=== PATIENT | female | born 1990 | race Caucasian/White ===

== ENCOUNTER 2022-07-26 15:05 | Outpatient (REF) | payer BC, SELFPAY ==
[2022-07-26 13:50] LABS: *AMPHETAMINES SCREEN URINE Negative (Negative); *BARBITURATES SCREEN URINE Negative (Negative); *BENZODIAZEPINES SCREEN URINE Negative (Negative); Cannabinoids THC Negative (Negative); Cocaine Screen,Urine Negative (Negative); METHADONE URINE SCREEN Negative (Negative); OPIATES URINE SCREEN Negative (Negative); Tricyclic Antidepressants Negative (Negative)
== END 2022-07-26 15:06 | disposition home or self-care (01) ==
LOC: LBN 15:05
PROVIDERS: Visit Provider Advanced Practice Midwife
DX: Z34.92 Encounter for supervision of normal pregnancy, unspecified, second trimester (principal); Z3A.17 17 weeks gestation of pregnancy
CPT/HCPCS: 80307; 87086

== ENCOUNTER 2022-08-23 01:21 | Outpatient (CLI) | payer BC, SELFPAY ==
[2022-08-26 11:06] LABS: Varicella IgG Antibody Positive (See Note)
== END 2022-08-23 01:22 | disposition home or self-care (01) ==
LOC: LBO 01:21
PROVIDERS: Visit Provider Advanced Practice Midwife
DX: Z34.92 Encounter for supervision of normal pregnancy, unspecified, second trimester (principal); Z3A.21 21 weeks gestation of pregnancy
CPT/HCPCS: 36415; 86787; 86850; 86900; 86901

== ENCOUNTER 2022-11-20 12:59 | Outpatient (REF) | payer BC, SELFPAY ==
[2022-11-20 14:13] LABS: *AMPHETAMINES SCREEN URINE Negative (Negative); *BARBITURATES SCREEN URINE Negative (Negative); *BENZODIAZEPINES SCREEN URINE Negative (Negative); Cannabinoids THC Negative (Negative); Cocaine Screen,Urine Negative (Negative); METHADONE URINE SCREEN Negative (Negative); OPIATES URINE SCREEN Negative (Negative); Tricyclic Antidepressants Negative (Negative)
[2022-11-30 11:57] LABS: Buprenorphine Negative ng/mL (Cutoff: 5.0); Norbuprenorphine Negative ng/mL (Cutoff: 2.5)
== END 2022-11-20 13:00 | disposition home or self-care (01) ==
LOC: LBN 12:59
PROVIDERS: Visit Provider Advanced Practice Midwife
DX: Z34.93 Encounter for supervision of normal pregnancy, unspecified, third trimester (principal); Z3A.34 34 weeks gestation of pregnancy
CPT/HCPCS: 80307; 80348

== ENCOUNTER 2022-12-05 09:38 | Outpatient (REF) | payer BC, SELFPAY | END 2022-12-05 09:39 | disposition home or self-care (01) | LOC: LBN 09:38 | PROVIDERS: Visit Provider Advanced Practice Midwife | DX: Z34.90 Encounter for supervision of normal pregnancy, unspecified, unspecified trimester (principal); Z3A.36 36 weeks gestation of pregnancy; Z36.85 Encounter for antenatal screening for Streptococcus B | CPT/HCPCS: 87081 ==

== ENCOUNTER 2022-12-24 15:55 | Outpatient (CLI) | payer BC, SELFPAY ==
[2022-12-24 17:12] VITALS: BP 103/79; PULSE 78; TEMP 36.8
--- NOTE | 2022-12-24 17:40 | W.OBNST ---
Date of service: 12/24/22 Time of Service: 17:40 NST Evaluation Reason for NST Reasons for Nonstress Test: OTHER, SEE COMMENT Reason for NST Other: rule out labor Gestational Age Gestational Age in Weeks and Days: 39 Weeks and 1Days Test and Monitor Explained Test/Monitor Explained: Test Explained, Monitor Explained and Patient Verbalized Understanding Vital Signs Blood Pressure: 103/79 Pulse: 78 Temperature: 98.2 F Urine Results Urine Protein: Negative Urine Ketones: Negative Urine Glucose: Negative Urine Blood: Negative NST Information Date on Monitor: 12/24/22 Time on Monitor: 17:15 Date off Monitor: 12/24/22 Time off Monitor: 17:36 Total Time on Monitor: 21 NST Interventions: PO Hydration Contraction Frequency: 8 NST Evaluation Patient States Movement: Present FHR Baseline: 130 Variability: Moderate 6-25 bpm Accelerations: 15x15 Decelerations: None NST Results: Reactive Note Ultrasound Done: N/A. NST Note Note: NST is reactive and reassuring. VE done per patient request, no cervical change from last office exam, 1.5/50/-2 posterior and soft. Will keep next scheduled office visit or return if signs of labor increase. ANJELICA NST Reviewed and Verified by: Kavita Maloney
[2022-12-24 17:41] VITALS: BP 103/79; PULSE 78; TEMP 36.8
== END 2022-12-24 17:40 | disposition home or self-care (01) ==
LOC: BCD 15:57 → OBS 17:09
PROVIDERS: Visit Provider Advanced Practice Midwife
DX: O47.1 False labor at or after 37 completed weeks of gestation (principal); Z3A.39 39 weeks gestation of pregnancy
CPT/HCPCS: 59025

== ENCOUNTER 2022-12-28 20:00 | Inpatient (IN) | payer BC, SELFPAY ==
[2022-12-28] VITALS (14 sets, daily range): BP systolic 110–126; BP diastolic 64–77; PULSE 57–89; RESP 16–18; TEMP 36.7; O2SAT 98–99
--- NOTE | 2022-12-28 20:01 | HPE_ITS ---
Date of service: 12/28/22 Time of Service: 20:01 Assessment and Plan Assessment and plan (1) Normal labor: Status: Acute Assessment and plan: 1. Admit to BC, expectant management, CBC and Type and screen, plan for NVD. KH OB-HPI Labor/Delivery History of Present Illness Reason for Visit: NORMAL LABOR Chief Complaint: Uterine Contractions. AMINTA Calculator Estimated Delivery Date Method Current WG Current Estimate 12/30/22 Ultrasound #1 39w 5d Other Estimates 01/07/23 LMP (Certain) 38w 4d Comments: Sarah and her , Marco present for labor assessment. Contractions began around 1pm every 10 minutes and have increased in frequency and intensity since that time. Has had some bloody show but no LOF. Baby has been active. She is tolerating labor well. History of Present Expected Delivery Route/Plan - CNM FOB/ - Marco Alvarez (2nd child together) BB yes to circ Would like to avoid epidural this time GBS negative Specific Issues/Plan 1. transfer at 17weeks from [facility] 2. cfDNA LR male, declined CF/SMA 3. US to be done at [facility] as patient works there 3a. incomplete anatomy, nose, lips, profile and noted echogenic foci in heart 3b. Referral to [facility] for follow up US and if needed echo per patient request. M agrees cfDNA negates echo genic foci 3c. Marginal cord insertion noted at [facility], 32 week growth US at [facility]= 70th% & ALBERTINA=11 4. Pap was ASCUS negative HR HPV will repeat PP 5. Will do 1 hr GTT and CBC at [facility] orders sent 09/23: 1 hr 105/ hgb 11.6 6. Desires LC consult prior to delivery, ordered. Assessment: History Reviewed & Current Review of Systems All systems reviewed & are unremarkable except as noted in HPI and below Genitourinary Comments: mucous vagina discharge with some blood tinge Musculoskeletal Comments: regular uterine contractions PFSH All Active Problems (Updated 12/28/22 @ 20:09 by Kavita Maloney CNM) Normal labor (Acute) Marginal insertion of umbilical cord affecting management of mother (Acute) Echogenic focus of heart of fetus affecting antepartum care of mother (Acute) ASCUS of cervix with negative high risk HPV (Acute) (Acute) Family History Mother Asthma Social History Smoking/Tobacco Use Status: Never Second Hand Exposure: No Smoking risk assessment performed?: Yes Alcohol Intake: former Drug use: Never Adopted: No Household members: spouse and children Housing: house Communication Needs: None Education Level: college Do you need help understanding health information?: Never Pets and animals: No Sexually active: Yes Do you think of yourself as: straight/heterosexual Current gender identity: female What is your relationship status?: How often do you talk on the phone with friends or family?: three or more times per week How often do you get together with friends or relatives?: three or more times per week Panel score (0-1 are the most socially isolated patients): 2 What type of physical activity do you participate in: walking Duration: 30-45 minutes/day Frequency: 3-4 times per week Special luisa needs: No Agree to transfusion: Yes Seatbelt use: always Helmet use: Yes Drive intox 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 Date GA/Weeks # Preg Succ Route Wgt Sex Labor Lgth Anesth esia Location [facility] 09/27/20 38 No Yes vaginal 7 lb 13 oz Male 14 [facility] Delivery Date: 09/27/20 Last Updated by: Kavita Maloney CNM [place] Meds Allergies and Home Medications Allergies Allergy/AdvReac Type Severity Reaction Status Date / Time sulfa drugs Allergy Other (See Uncoded 12/28/22 20:07 Comment) Home Medications Medication Instructions Recorded Confirmed Type prenat.vits,barry,[id number] 1 tab PO DAILY 07/26/22 12/26/22 History Exam Constitutional Constitutional: mild distress (working well with contractions) and average body habitus Detailed Labor and Delivery Exam Dilation: 8 Effacement (%): 100 station: -1 Position: CARLOS Cervix position: mid Consistency: soft Salinas Score: Cervical Points Exam 0 1 2 3 Dilation Closed 1-2cm 3-4 cm 5-6cm Effacement 0-30% 40-50% 60-70% 80% Consistency Firm Medium Soft Station -3 -2 -1,0 +1,+2 Position Posterior Mid Anterior SALINAS Score(Cervical Ripeness Score): 12 Amniotic Membrane Status: Intact Contraction Frequency(min): 4 Contraction Duration(sec): 60-90 Contraction Intensity: Moderate/Strong Fetus A Heart Rate Baseline: 120 Monitor Accelerations: 15 X 15 Monitor Decelerations: None Variability: Moderate (6-25 BPM) Categories: Category I Est. Weight: 7 lb HEENT Exam HEENT Exam: Normal Neck Exam Neck Exam: Normal (visual exam) Chest/Brest/Axilla Exam Chest Exam: Normal Breast Exam Breast Exam: Not Done Respiratory Exam Respiratory Exam: Normal Cardiovascular Exam Cardiovascular Exam: Normal Abdominal Exam Abdominal Exam: Normal (gravid uterus, size equals dates) Rectal Exam Rectal Exam: Not Done Exam Exam: Normal Extremities Exam Extremities Exam: Normal Back/Spine/Pelvis Exam Back Exam: Not Done Pelvis Adequate: Yes Skin Exam Skin Exam: Normal Neurological Exam Neurological Exam: Normal Psychiatric Exam Psychiatric Exam: Normal Results Results Group Beta Strep: Negative Blood Type: A+ Rubella Status: Immune Varicella Immunity: Immune Lab Results: cfDNA LR male, GC CT neg, 1 hr glucose 105, declines CF and SMA testing Risk Assessment Risk for Shoulder Dystocia Historical/Initial OB: NEGATIVE FOR: Pelvic Abnormality, Pre- BMI>30, Previous Shoulder Dystocia or Previous Macrosomia 36 Weeks: NEGATIVE FOR: Current Gestational DM, EFW>4500gms or Maternal Weight Gain>40lbs 40 Weeks: NEGATIVE FOR: EFW> 4500 gms, Maternal Weight Gain >40lb or Post Dates Increased Risk?: No Date/Initial: 07/26/22: KH Delivery Plan @ 36wks: Delivery Plan @ 40 wks: NVD Risk for Pre-Eclampsia Daily Dose ASA Indicated: No Yes, if one or more: NEGATIVE FOR: Hx Pre-E/Gest HTN, Chronic HTN, Multiple Gestation, Pre-gestational DM, Renal Disease, Systemic Lupus or APA Syndrome Yes, if 2 or more: NEGATIVE FOR: Nulliparity, Age>= 35 yrs, >10yr btwn pregnancies, BMI>30, ethinicty, Mother/Sister w/ Pre-E or Previous IUGR Risk for Post- Hemorrhage Initial: NEGATIVE FOR: Multiple Gestation, Previous PPH, Known Clotting Deficiency, Grand Multiparity or Anticoagulation 36 Weeks: NEGATIVE FOR: Anemia, hgb<10, Low platelets(thrombocytopenia), Gestational HTN or Pre-E, Polyhydraminios or EFW>4500gms 40 Weeks: NEGATIVE FOR: Anemia, hgb<10, Low platelets (thrombocytopenia), Gestation HTN or Pre-E, Polyhydraminios or EFW>4500gms At Risk?: No Date/Initials: 07/26/22 Risks Reviewed Risks Reviewed Upon Admission: Yes
[2022-12-28 20:22] LABS: HCT 32.9 % (36.0-46.0); HGB 10.7 g/dL (11.2-15.7); MCH 27.2 pg (27.0-33.0); MCHC 32.5 % (32.0-36.0); MCV 84 fL (80-95); MPV 11.2 fL (8.0-11.0); Platelet Count 203 10^3/uL (130-400); RBC 3.93 10^6/uL (3.93-5.22); RDW 13.6 % (11.7-14.6); RDW-SD 42.1 fL; WBC 10.96 10^3/uL (4.4-10.8)
--- NOTE | 2022-12-28 21:03 | W.OBNST ---
Date of service: 12/28/22 Time of Service: 21:03 NST Evaluation Reason for NST Reasons for Nonstress Test: OTHER, SEE COMMENT Reason for NST Other: rule out labor Gestational Age Gestational Age in Weeks and Days: 39 Weeks and 5Days Test and Monitor Explained Test/Monitor Explained: Test Explained, Monitor Explained and Patient Verbalized Understanding Vital Signs Blood Pressure: 118/75 Pulse: 74 Temperature: 98.1 F Urine Results Urine Protein: Negative Urine Ketones: Negative Urine Glucose: Negative Urine Blood: Negative NST Information Date on Monitor: 12/28/22 Time on Monitor: 20:00 Date off Monitor: 12/28/22 Time off Monitor: 20:20 Total Time on Monitor: 20 NST Interventions: None Contraction Frequency: 5-6 min NST Evaluation Patient States Movement: Present FHR Baseline: 135 Variability: Moderate 6-25 bpm Accelerations: 15x15 Decelerations: None NST Results: Reactive Note Ultrasound Done: N/A. NST Note Note: NST is reactive and reassuring. Admitted in active labor. NST Reviewed and Verified by: Kavita Maloney
[2022-12-28] MEDS: Oxytocin 10 UNITS/ML VIAL IM (22:33)
[2022-12-28] MEDS: Methylergonovine 0.2 MG/ML VIAL IM (22:39)
--- NOTE | 2022-12-28 22:47 | OBVDS_ITS ---
Date of service: 12/28/22 Time of Service: 22:47 OB Labor/ Delivery Information Baby A Delivery Delivery Method: Spontaneaous Presentation: Cephalic Cephalic Position: Vertex Vertex Position: Right Occipital Anterior Cord Description-Baby A: 3 Vessels and Clamped/Cut Amniotic Fluid: Clear Estimated Blood Loss: 200 Delivery Outcome: Liveborn Infant Complications: none Transferred: Remains with Mother Providers Nurse Home Economics Extension Worker: Kavita Maloney Nurse: Marina Vences Labor/Delivery Information Number of Babies in Womb: 1 Steroids Given: None Reason Steroids Not Administered: N/A Group Beta Strep: Negative Antibiotics Administered: No Rubella Status: Immune Blood Type: A+ Varicella Immunity: Immune Note: Sarah presented in active labor. Had CAT I NST and then intermittent doppler FHR always within normal range. She felt spontaneous urge to push while in right lateral position with peanut ball. VE confirmed 10/100/-1 at 2205. Second stage huddle was held and it was noted that she was low risk for shoulder dystocia, and PPH. We planned 10 units pitocin IM after baby was born. SROM occured with pushing at 2226, clear fluid. Baby Ceferino austin, delivered CARLOS over intact perineum at 2230. Baby was placed skin to skin. Delayed cord clamping for 90 seconds, then cord was double clamped, cut by Marco GUADALUPE. Positive family bonding noted. score 9 and 9. Pitocin was given 10 units IM. Placenta delivered at 2236, with gentle traction and maternal pushing effort. Trailing membranes teased out. Bimanual exam shows lower uterine segment is firm and no clots or membranes noted. Reviewed risk of hemorrhage if membranes remain in uterus and patient agrees to 24 hours of Methergine therapy. 0.2mg Methergine given IM for first dose as Sarah is slightly nauseated. Next dose will be at approximately 0445 and every 6 hours for total of 24 hours after delivery. Placenta appears intact on inspection. 3 vessel cord noted. EBL 200cc. Fundus is firm and below U. Expect normal PP course. Baby geovanna De La Vega weight is 8lb 8.8oz. Mother and baby are in satisfactory condition. Expect discharge PP day 1. KH Stages of Labor Onset of Labor Date: 12/28/22 Onset of Labor Time: 13:00 Complete Dilatation Date: 12/28/22 Complete Dilatation Time: 22:05 Labor - Stage 1 Duration: 9 hours and 5 minutes ROM Baby A: 12/28/22 ROM Baby A: 22:26 Delivery Date-Baby A: 12/28/22 Infant Delivery Time-Baby A: 22:30 Labor Stage 2 Duration: 25 minutes Placenta Delivery Date-Baby A: 12/28/22 Placenta Delivery Time-Baby A: 22:36 Labor-Stage 3 Duration: 6 minutes Total Length of Labor-Baby A: 9 hours and 30 minutes
[2022-12-29 00:30] VITALS: BP 112/68; PULSE 75; RESP 16
[2022-12-29 01:30] VITALS: BP 112/76; PULSE 78; RESP 16
[2022-12-29 04:45] VITALS: BP 107/77; PULSE 62; RESP 16; TEMP 36.8
[2022-12-29] MEDS: Methylergonovine 0.2 MG TAB PO ×3 (04:51→18:28)
--- NOTE | 2022-12-29 08:41 | W.PM.OBPNV1 ---
Date of service: 12/29/22 Time of Service: 08:41 Assessment and Plan Assessment and plan (1) care following vaginal delivery: Status: Acute Assessment and plan: 1. Normal PP course to date 2. continue PO methergine as scheduled due to trailing membranes removed at delivery 3. expect discharge to home 12/30/22 (2) Lactating mother: Status: Acute Assessment and plan: 1. breast feeding is well established and Sarah is an experienced mother 2. Continue present management. KH Exam Physical Exam Vital signs: Temp Pulse Resp BP Pulse Ox 98.2 F 62 16 107/77 98 12/29/22 04:45 12/29/22 04:45 12/29/22 04:45 12/29/22 04:45 12/28/22 20:13 Vital Signs Reviewed: Yes Constitutional Constitutional: no acute distress, average body habitus and cooperative HEENT Exam HEENT Exam: Normal Neck Exam Neck Exam: Normal (normal visual inspection) Respiratory Exam Respiratory Exam: Normal Cardiovascular Exam Cardiovascular Exam: Normal Abdominal Exam Abdomen: Other (normal exam) Fundal Exam Fundus: Below Umbilicus and Firm Comment: small lochia noted. KH Rectal Exam Rectal Exam: Not Done Exam Perineum: Intact and Normal Extremities Exam Extremity Exam: Normal (denies calf tenderness) and Full ROM Back/Spine/Pelvis Exam Back Exam: Normal Skin Exam Skin Exam: Normal Neurological Exam Neurological Exam: Normal Psychiatric Exam Psychiatric Exam: Normal Results Hemoglobin/Hematocrit: Hgb 10.7 g/dL (11.2-15.7) L 12/28/22 20:15 Hct 32.9 % (36.0-46.0) L 12/28/22 20:15 Abnormal Lab Findings: Abnormal Labs 12/28/22 20:15 WBC 10.96 H Hgb 10.7 L Hct 32.9 L MPV 11.2 H
[2022-12-29] MEDS: Ibuprofen 600 MG TAB PO (09:00)
[2022-12-29 09:54] VITALS: BP 107/73; PULSE 73; RESP 16; TEMP 36.1
[2022-12-29 22:30] VITALS: BP 112/70; PULSE 72; RESP 18; TEMP 36.7
[2022-12-30] MEDS: Methylergonovine 0.2 MG TAB PO (01:45)
[2022-12-30 07:57] VITALS: BP 107/75; PULSE 76; RESP 17; TEMP 36.9; O2SAT 99
--- NOTE | 2022-12-30 10:17 | OBPPV_ITS ---
Date of service: 12/30/22 Time of Service: 10:17 Assessment and Plan Assessment and plan (1) Lactating mother: Status: Acute (2) care following vaginal delivery: Status: Acute Assessment and plan: A: Nml PP recovery Satisfied with experience P: Discharge today is going well Pt plans Mirena IUD insertion at or after 6 wk check up Written instructions reviewed and given to pt F/up at 2 & 6 wks Subjective Subjective Patient comments: No complaints, Pain well controlled, Tolerating diet and Flatus present Patient's Mood: happy [place] baby status: Doing well, Nursing well, Rooming in and Strong Bonding Observed feeding status: Exclusively breast feeding Exam Physical Exam Vital signs: Temp Pulse Resp BP Pulse Ox 98.4 F 76 17 107/75 99 12/30/22 07:57 12/30/22 07:57 12/30/22 07:57 12/30/22 07:57 12/30/22 07:57 Vital Signs Reviewed: No Constitutional Constitutional: no acute distress and cooperative HEENT Exam HEENT Exam: Normal Neck Exam Neck Exam: Normal Breast Exam Bilateral: Breast Exam: Normal and Soft Nipple Exam: Normal and Uninjured Respiratory Exam Respiratory Exam: Normal Cardiovascular Exam Cardiovascular Exam: Normal Abdominal Exam Abdomen: Other (soft and nontender) Fundal Exam Fundus: Below Umbilicus and Firm Rectal Exam Rectal Exam: Normal Exam Patient deferred: external exam Perineum: Intact Extremities Exam Extremity Exam: Normal and Full ROM Back/Spine/Pelvis Exam Back Exam: Normal Skin Exam Skin Exam: Normal Neurological Exam Neurological Exam: Normal Psychiatric Exam Psychiatric Exam: Normal Results Hemoglobin/Hematocrit: Hgb 10.7 g/dL (11.2-15.7) L 12/28/22 20:15 Hct 32.9 % (36.0-46.0) L 12/28/22 20:15 Abnormal Lab Findings: Abnormal Labs 12/28/22 20:15 WBC 10.96 H Hgb 10.7 L Hct 32.9 L MPV 11.2 H
--- NOTE | 2022-12-30 10:35 | W.PM.OBDISCH ---
Date of service: 12/30/22 Time of Service: 10:35 DS: Diagnosis Discharge Diagnosis (1) Lactating mother: Status: Acute (2) care following vaginal delivery: Status: Acute (3) Term delivered: Status: Acute Discharge Plan Disposition Condition: Good Condition: Good Discharge Details Reason For Visit: NORMAL LABOR Admit Date/Time: 12/28/22 20:00 Admit Provider: Kavita Maloney Attending Provider: Kavita Maloney Hospital Course Hospital Course: , normal course Home Meds and New Rx's Prescriptions: No Action prenat.vits,barry,[id number] Tablet 1 tab PO DAILY Discharge Instructions Additional Instructions: Please keep your 2 and 6 wk appointments. If you prefer, you may change the 2 week appointment to a telehealth visit. Call for any and all concerns. Stand Alone Forms: BC Instructions, BC Post Vaginal Deliver Activity:: Activity as Tolerated Equipment/Supplies:: No Equipment Needed Diet:: Normal Diet OB:DS Summary Summary Vaginal Delivery Method: Spontaneaous Episiotomy Description: None Laceration Description: None Laceration Extension: N/A Contraception Discussed Contraception Discussed: Yes Contraceptive Plan: IUD, Gender-Baby A: Male weight: 8 lb 8.863 oz Status at Discharge Functional status at discharge: independent ambulation Overall status at discharge: patient is progressing back to baseline Mental Status: mental status grossly normal Speech and Movement: speech and movement normal and speech clear Mood: congruent mood Affect: normal affect Exam Physical Exam Vital signs: Temp Pulse Resp BP Pulse Ox 98.4 F 76 17 107/75 99 12/30/22 07:57 12/30/22 07:57 12/30/22 07:57 12/30/22 07:57 12/30/22 07:57 Constitutional Constitutional: no acute distress and cooperative HEENT Exam HEENT Exam: Normal Neck Exam Neck Exam: Normal Breast Exam Bilateral: Breast Exam: Normal and Soft Respiratory Exam Respiratory Exam: Normal Cardiovascular Exam Cardiovascular Exam: Normal Abdominal Exam Abdomen: Other (soft and nontender) Fundal Exam Fundus: Below Umbilicus and Firm Rectal Exam Rectal Exam: Normal Exam Patient deferred: external exam Perineum: Intact Extremities Exam Extremity Exam: Normal and Full ROM Back/Spine/Pelvis Exam Back Exam: Normal Skin Exam Skin Exam: Normal Neurological Exam Neurological Exam: Normal Psychiatric Exam Psychiatric Exam: Normal PFSH All Active Problems (Updated 12/30/22 @ 10:35 by Loretta Courtney) Term delivered (Acute) Lactating mother (Acute) care following vaginal delivery (Acute) ASCUS of cervix with negative high risk HPV (Acute) (Acute) Medical History (Updated 12/30/22 @ 10:35 by Loretta Courtney) Echogenic focus of heart of fetus affecting antepartum care of mother Marginal insertion of umbilical cord affecting management of mother Normal labor Family History Mother Asthma Social History Smoking/Tobacco Use Status: Never Second Hand Exposure: No Smoking risk assessment performed?: Yes Alcohol Intake: former Drug use: Never Substance use type: does not use Adopted: No Household members: spouse and children Housing: house Communication Needs: None Education Level: college Do you need help understanding health information?: Never Pets and animals: No Sexually active: Yes Do you think of yourself as: straight/heterosexual Current gender identity: female What is your relationship status?: How often do you talk on the phone with friends or family?: three or more times per week How often do you get together with friends or relatives?: three or more times per week Panel score (0-1 are the most socially isolated patients): 2 What type of physical activity do you participate in: walking Duration: 30-45 minutes/day Frequency: 3-4 times per week Special luisa needs: No Agree to transfusion: Yes Seatbelt use: always Helmet use: Yes Drive 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 Date GA/Weeks # Preg Succ Route Wgt Sex Labor Lgth Anesthesia Location [facility] 09/27/20 38 No Yes vaginal 7 lb 13 oz Male 14 regional [facility] 12/28/22 39 No Yes vaginal 8 lb 8.8 oz Male 9hrs 30min ANTONY Castañeda Delivery Date: 09/27/20 Last Updated by: ANTONY Iniguezder Delivery Date: 12/28/22 Last Updated by: JASBIR Krueger DS: Data Vitals/I&O Vitals and I&O: Vital Signs Temperature 98.4 F 12/30/22 07:57 Temperature 98.1 F 12/28/22 21:04 Temperature Source Oral 12/30/22 07:57 Pulse 76 12/30/22 07:57 Pulse 74 12/28/22 21:04 Pulse Rhythm Regular 12/29/22 09:56 Respiratory Rate 17 12/30/22 07:57 Respiratory Depth Normal 12/28/22 23:37 Blood Pressure 107/75 12/30/22 07:57 Blood Pressure 118/75 12/28/22 21:04 Blood Pressure Mean 85 12/30/22 07:57 Pulse Oximetry 99 12/30/22 07:57 Oxygen Delivery Method Room Air 12/28/22 20:08 Oxygen Flow Rate 0 12/28/22 20:08 Pain Level 7 12/29/22 09:00 Comment denies pain 12/29/22 00:30 Intake & Output 12/29/22 12/29/22 12/30/22 11:59 23:59 11:59 Other: Urine Color Yellow Comment voiding WNL Voiding Methods Toilet
== END 2022-12-30 11:03 | disposition home or self-care (01) | DRG 807 ==
PROVIDERS: Admitting Provider Advanced Practice Midwife; Visit Provider Advanced Practice Midwife
DX: O75.89 Other specified complications of labor and delivery (principal); Z37.0 Single live birth; Z3A.39 39 weeks gestation of pregnancy; R87.610 Atypical squamous cells of undetermined significance on cytologic smear of cervix (ASC-US); O69.89X0 Labor and delivery complicated by other cord complications, not applicable or unspecified
CPT/HCPCS: 85027; 86850; 86900; 86901; J2210; J2590

== ENCOUNTER 2023-02-06 12:48 | Outpatient (REF) | payer BC, SELFPAY ==
--- NOTE | 2023-02-06 10:40 | PAPFT_PTH ---
PATIENT: Sarah Alvarez LOC: [facility] U#:[id number] AGE/SX: 32/F ROOM: RE02/06/[address]: Kavita Maloney CNM : 1990 BED: DIS: 02/06/2023 SPEC #: [id number] RECD: 02/06/23 18:22 STATUS: FAY REQ #: [id number] ANKITA: 02/06/23 10:[address]: Kavita Maloney DEPT: [facility] Cytology RECD BY: Valery Johnson Tissues: 1 - CX/ENDOCX FOR PAP SMEARS Procedures: PAP THIN PREP/UVM Screening HPV DNA PROBE Comments: [id number]
== END 2023-02-06 12:49 | disposition home or self-care (01) ==
LOC: LBN 12:48
PROVIDERS: Visit Provider Advanced Practice Midwife
DX: Z12.4 Encounter for screening for malignant neoplasm of cervix (principal); Z11.51 Encounter for screening for human papillomavirus (HPV)
CPT/HCPCS: 88142; 87624